=== PATIENT | male | born 1970 | race Caucasian/White ===

== ENCOUNTER 2018-05-24 16:44 | Emergency (ER) | payer MEDICAID ==
[2018-05-24 18:11] LABS: EOS # 0.1 K/uL (0.0-0.7); HEMOGLOBIN 14.2 g/dL (12.0-18.0); LYMPH # 2.4 K/uL (1.0-4.3); NEUT # 1.2 K/uL (1.8-7.0); WHITE BLOOD COUNT 4.1 K/uL (4.8-10.8)
[2018-05-24 18:15] LABS: BASO % 0.9 % (0.0-2.0); EOS % 1.3 % (0.0-4.0); MEAN CELL VOLUME 89.6 fL (80.0-94.0); MEAN CORPUSCULAR HGB CONC 34.6 g/dL (33.0-37.0); MEAN PLATELET VOLUME 8.3 fL (7.2-11.7); MONO # 0.4 K/uL (0.0-0.8); NEUT % 28.8 % (50.0-75.0); NRBC % 0.1 % (0.0-2.0); RBC 4.57 Mil/uL (4.40-5.90); RED CELL DISTRIBUTION WIDTH 13.1 % (11.5-14.5)
--- NOTE | 2018-05-24 18:18 | C.PDOC ---
History Of Present Illness 48 y/o male presents to the ED for evaluation of intermittent episodes of palpitations since yesterday. Patient reports he had 3 brief episodes of palpitations yesterday and one today. He describes a sensation rapid movement inside his chest, for just a few seconds at a time. Denies any nausea, vomiting, chest pain, SOB, leg swelling, tingling, or weakness. Time Seen by Provider: 05/24/18 17:45 Chief Complaint (Nursing): Palpitations History Per: Patient History/Exam Limitations: no limitations Onset/Duration Of Symptoms: Intermittent Episodes Current Symptoms Are (Timing): Gone Quality Of Symptoms: Rapid Heart Rate Recent travel outside of the [place]: No Past Medical History Reviewed: Historical Data, Nursing Documentation, Vital Signs Vital Signs: Last Vital Signs Temp 98.4 F 05/24/18 17:46 Pulse 62 05/24/18 17:46 Resp 16 05/24/18 17:59 BP 117/69 05/24/18 17:46 Pulse Ox 95 05/24/18 17:59 - Medical History PMH: No Chronic Diseases Surgical History: No Surg Hx Family History: States: No Known Family Hx - Social History Hx Tobacco Use: No Hx Alcohol Use: No Hx Substance Use: No - Immunization History Hx Tetanus Toxoid Vaccination: No Hx Influenza Vaccination: No Hx Pneumococcal Vaccination: No Review Of Systems Except As Marked, All Systems Reviewed And Found Negative. Constitutional: Negative for: Fever, Chills, Sweats Eyes: Negative for: Vision Change ENT: Negative for: Nose Congestion Cardiovascular: Positive for: Palpitations. Negative for: Chest Pain Respiratory: Negative for: Cough, Shortness of Breath Gastrointestinal: Negative for: Nausea, Vomiting Skin: Negative for: Rash Neurological: Negative for: Weakness, Headache, Dizziness Physical Exam - Physical Exam Appears: Non-toxic, No Acute Distress Skin: Warm, Dry, No Diaphoretic, No Pale Head: Atraumatic, Normacephalic Eye(s): bilateral: Normal Inspection, PERRL, EOMI Oral Mucosa: Moist Neck: Normal ROM Chest: Symmetrical, No Tenderness Cardiovascular: Rhythm Regular, No Murmur Respiratory: Normal Breath Sounds, No Rales, No Rhonchi, No Wheezing Gastrointestinal/Abdominal: Soft, No Tenderness, No Distention Back: No CVA Tenderness Extremity: Bilateral: Atraumatic, Normal Color And Temperature, Normal ROM Pulses: Left Radial: Normal, Right Radial: Normal Neurological/Psych: Oriented x3, Normal Speech ED Course And Treatment - Laboratory Results Result Diagrams: 05/24/18 18:00 05/24/18 18:00 ECG: Interpreted By Me, Viewed By Me ECG Rhythm: Sinus Bradycardia ECG Interpretation: No Acute Changes Rate From EC (bpm) O2 Sat by Pulse Oximetry: 95 (RA) Pulse Ox Interpretation: Normal Progress Note: Blood work and urine sent to the lab. EKG and CXR obtained and reviewed. Patient is asymptomatic now. All work up was negative. Patient is stable to be d/c home with PMD and hospice care consultant follow up and holter monitor a outpatient. finding were discussed with patient and he agreed with the plan. Disposition - Disposition Referrals: Todd Pillai DO [Staff Provider] - Disposition: HOME/ ROUTINE Disposition Time: 18:52 Condition: STABLE Additional Instructions: Follow up with PMD and [employer] Operator. Holter monitoring is recommended in outpatient setting. Return to ED immediately if feel worse. Instructions: Palpitations (DC) Forms: [employer] (Welsh) - Clinical Impression Clinical Impression: Palpitations - PA / TELEVISION ANTENNA INSTALLER / Resident Statement MD/ has reviewed & agrees with the documentation as recorded. - Scribe Statement The provider has reviewed the documentation as recorded by the [employer]rib[employer] Stone All medical record entries made by the Scribe were at my direction and personally dictated by me. I have reviewed the chart and agree that the record accurately reflects my personal performance of the history, physical exam, medical decision making, and the department course for this patient. I have also personally directed, reviewed, and agree with the discharge instructions and disposition.
[2018-05-24 18:23] LABS: ALB/GLOB RATIO 1.5 (1.0-2.1); ALBUMIN 3.9 g/dL (3.5-5.0); ALT/SGPT 60 U/L (21-72); AST/SGOT 32 U/L (17-59); BLOOD UREA NITROGEN 18 mg/dL (9-20); CALCIUM 9.1 mg/dl (8.6-10.4); GFR NON-AFRICAN AMERICAN > 60
[2018-05-24 18:34] LABS: URINE AMORPHOUS SEDIMENT MODERATE /ul (<OCC); URINE BILIRUBIN NEGATIVE (NEGATIVE); URINE BLOOD NEGATIVE (NEGATIVE); URINE CLARITY Turbid (Clear); URINE COLOR Yellow (YELLOW); URINE GLUCOSE (UA) NORMAL (Normal); URINE LEUKOCYTE ESTERASE NEG Leu/uL (Negative); URINE PROTEIN 1+ mg/dL (NEGATIVE); URINE UROBILINOGEN NORMAL mg/dL (0.2-1.0)
[2018-05-24 18:35] LABS: CK-MB 0.51 ng/mL (0.0-3.38)
[2018-05-24 18:47] LABS: BARBITURATES, UR NEGATIVE (NEGATIVE); OPIATES, UR NEGATIVE (NEGATIVE); PHENCYCLIDINE, UR NEGATIVE (NEGATIVE)
[2018-05-24 18:49] LABS: BENZODIAZEPINES, UR POSITIVE (NEGATIVE)
[2018-05-24 19:13] VITALS: BP 127/72; PULSE 74; RESP 17; TEMP 98; O2SAT 98
--- NOTE | 2018-05-25 10:59 | RAD ---
HISTORY: palpitations COMPARISON: Chest x-ray performed 06/10/12 TECHNIQUE: Chest, one view. FINDINGS: Examination limited by habitus and hypoinflation. LUNGS: Mild biapical pleural thickening. No focal consolidation. Please note that chest x-ray has limited sensitivity for the detection of pulmonary masses. PLEURA: No significant pleural effusion identified. No definite pneumothorax . CARDIOVASCULAR: Heart size appears within normal limits. Atherosclerotic calcification present. OSSEOUS STRUCTURES: Degenerative changes. VISUALIZED UPPER ABDOMEN: Unremarkable. OTHER FINDINGS: None. IMPRESSION: Hypoinflation. No focal consolidation.
--- NOTE | 2018-05-25 21:30 | CARD ---
APPROVED REPORT Date of service: 05/24/2018 EKG Measurement Heart [id number] <Conclusion> Sinus bradycardia Otherwise normal ECG
== END 2018-05-24 19:13 | disposition home or self-care (01) ==
LOC: C.ER 16:44
DX: R00.2 Palpitations (principal)

== ENCOUNTER 2018-06-05 13:19 | Emergency (ER) | payer MEDICAID ==
[2018-06-05 13:41] VITALS: BMI 27.9
[2018-06-05 13:45] VITALS: BP 117/84; PULSE 62; RESP 18; TEMP 98.1; O2SAT 96
--- NOTE | 2018-06-05 14:14 | C.PDOC ---
History Of Present Illness 48 yo male come in for evaluation of Right shoulder pain gradually developed for past week. Pt reports, pain is localized over Right shoulder, worse with Right arm lifting, intermittent radiation of pain to Right arm. Pt admits, " lift heavy weights". Otherwise, pt denies known trauma or injury, fever, chills, headache, dizziness, neck pain, CP, SOB, dyspnea, diaphoresis, palpitation, denies weakness, sensory or vascular deficits to Right arm,. Ambulatory in ED with stable gait, not in any apparent distress. Time Seen by Provider: 06/05/18 13:52 Chief Complaint (Nursing): Upper Extremity Problem/Injury History Per: Patient Past Medical History Reviewed: Historical Data, Nursing Documentation, Vital Signs Vital Signs: Last Vital Signs Temp 98.1 F 06/05/18 13:41 Pulse 62 06/05/18 13:41 Resp 18 06/05/18 13:41 BP 117/84 06/05/18 13:41 Pulse Ox 96 06/05/18 13:41 - Medical History PMH: Denies: CAD, Cardia Arrhythmia, Cardiac Aneurysm, CHF, COPD Surgical History: No Surg Hx Family History: States: No Known Family Hx - Social History Hx Tobacco Use: No Hx Alcohol Use: No Hx Substance Use: No - Immunization History Hx Tetanus Toxoid Vaccination: No Hx Influenza Vaccination: No Hx Pneumococcal Vaccination: No Review Of Systems Except As Marked, All Systems Reviewed And Found Negative. Constitutional: Negative for: Fever, Chills ENT: Negative for: Ear Discharge, Nose Discharge Cardiovascular: Negative for: Chest Pain, Palpitations, Orthopnea, Edema, Light Headedness Respiratory: Negative for: Cough, Shortness of Breath, Wheezing Gastrointestinal: Negative for: Nausea, Vomiting, Abdominal Pain Genitourinary: Negative for: Dysuria, Incontinence Musculoskeletal: Positive for: Shoulder Pain. Negative for: Neck Pain, Back Pain Skin: Negative for: Lesions, Bruising Neurological: Negative for: Weakness, Numbness, Headache Physical Exam - Physical Exam Appears: Well, Non-toxic, No Acute Distress Skin: Normal Color, Warm Head: Normacephalic Eye(s): bilateral: PERRL Neck: Trachea Midline, No Midline Cervical Tenderness, No Paracervical Tenderness, No Step Off Deformity, Supple Chest: Symmetrical, No Deformity, No Tenderness Cardiovascular: Rhythm Regular, No Murmur, No JVD, Other ((-) carotid bruits B/L) Respiratory: No Decreased Breath Sounds, No Accessory Muscle Use, No Stridor, No Wheezing Gastrointestinal/Abdominal: Soft, No Tenderness, No Distention, No Guarding Back: No CVA Tenderness, No Vertebral Tenderness Extremity: Normal ROM (mild discomfort to Right shoulder abduction/extension due to pain, otherwise FAROM, no neurovascular deficits), Tenderness (superior aspect Right shoulder with palpable muscle spasm. NO skin changes, no palpable deformity.), Capillary Refill (less than 2sec to Right hand), No Deformity, No Swelling Extremity: Bilateral: Atraumatic Pulses: Right Radial: Normal DTR: Bicep (R): 2+, Tricep (R): 2+ Neurological/Psych: Oriented x3, Normal Speech, Normal Motor, Normal Sensation, Normal Reflexes ED Course And Treatment O2 Sat by Pulse Oximetry: 96 Pulse Ox Interpretation: Normal - Other Rad Right shoulder X-Ray: Interpreted by Me, Viewed By Me Interpretation: (-) acute fx or dislocation Progress Note: On re-eval, pt is afebrile, hemodynamicalys table. Non-toxic. Neck; Supple, (-) JVD, (-) carotid bruits B/L. CVS: (+)S1S2, reg, (-) murmur. Lungs: CTA B/L, BS equal B/L. RUE: mod tenderness superior shoulder with muscle spasm upper shoulder girdle. FAROM, no neurovascular deficits. Imaging review (-) acute findings. Pt has clinical findings c/w Right shoulder strain/muscle spasm. Advised. ref. to F/u with PMD in2 -3 days for re-eavl. return if any new changes. Disposition Counseled Patient/Family Regarding: Diagnosis, Need For Followup, Rx Given - Disposition Referrals: Todd Pillai DO [Staff Provider] - Arvin Villalpando III, MD [Staff Provider] - Disposition: HOME/ ROUTINE Disposition Time: 14:15 Condition: STABLE Additional Instructions: Light duty to Right shoulder for 1-2 weeks Take medication as prescribed Follow up with PMD in 2-3 days for re-evaluation. return if any new changes. Prescriptions: Gabapentin [Neurontin] 300 mg PO HS #7 cap Prednisone [Deltasone] 40 mg PO DAILY #6 tablet Instructions: Shoulder Sprain Forms: [employer] (Namibian) - Clinical Impression Clinical Impression: Shoulder strain
--- NOTE | 2018-06-05 15:24 | RAD ---
PROCEDURE: Radiographs of the Right Shoulder HISTORY: pain COMPARISON: Chest x-ray performed 05/24/18 FINDINGS: BONES: No acute displaced fracture. The distal clavicle and underlying ribs appear intact. JOINTS: No acute dislocation. SOFT TISSUES: Soft tissues appear unremarkable. No evidence of radiopaque foreign body. IMPRESSION: No acute displaced fracture or dislocation evident. If symptoms persist or if there is continued clinical concern, x-ray follow-up in 7-10 days should be considered.
== END 2018-06-05 14:36 | disposition home or self-care (01) ==
LOC: C.ER 13:19
DX: S46.911A Strain of unspecified muscle, fascia and tendon at shoulder and upper arm level, right arm, initial encounter (principal); X58.XXXA Exposure to other specified factors, initial encounter